=== PATIENT | male | born 1960 | race Caucasian/White ===

== ENCOUNTER → 2022-03-30 14:45 | Outpatient (CLI) | payer BC, SELFPAY ==
--- NOTE | ~2022-03-30 | MR_ITS ---
MRI of the cervical spine Clinical History: Left cervical radiculopathy Technique: Axial T2-weighted and gradient images, and sagittal T1-weighted, T2-weighted, and STIR acacia ges were acquired. Findings: No fracture or subluxation seen in the cervical spine. Vertebral bodies maintain normal hei ght and alignment. No bone marrow signal abnormality identified. At C2-C3, there is no disc bulge or herniation. No spinal canal stenosis, cord compression, or neural foraminal narrowing. At C3-C4, there is no disc bulge or herniation. No spinal canal stenosis, cord compression, or neural foraminal narrowing. At C4-C5, there is a central disc protrusion, which minimally flattens the ventral spinal cord. Bilat eral neural foramen are preserved. At C5-C6, there is minimal disc bulge. No spinal canal stenosis, cord compression, or neural foramina l narrowing. At C6-C7, there is mild disc bulge, which minimally flattens the ventral cord. There is left neural f oraminal narrowing. Right neural foramen preserved. No abnormal signal seen in the spinal cord. Paravertebral soft tissues are unremarkable. No preverteb ral soft tissue swelling. Impression: Central disc protrusion at C4-C5, which minimally flattens the ventral cord. Disc bulge at C6-C7, which minimally flattens the ventral cord. Left neural foraminal narrowing at C6-C7. Reviewed, dictated and finalized at location [] [facility] Impression: Central disc protrusion at C4-C5, which minimally flattens the ventral cord. Disc bulge at C6-C7, which minimally flattens the ventral cord. Left neural foraminal narrowing at C6-C7.
== END ==
PROVIDERS: PCP Family Medicine Adolescent Medicine; Visit Provider Physician Assistant
DX: M54.12 Radiculopathy, cervical region (principal); M25.512 Pain in left shoulder; M50.323 Other cervical disc degeneration at C6-C7 level
CPT/HCPCS: 72141